=== PATIENT | female | born 1995 ===

== ENCOUNTER 2018-06-23 11:26 | Emergency (ER) | payer OTHER ==
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
[2018-06-23 13:23] LABS: Basophils # (Auto) 0.1 K/mm3 (0.0-0.1); Basophils % (Auto) 0.7 % (0.0-1.8); Eosinophils % (Auto) 0.4 % (0.0-4.3); Hematocrit 35.7 % (30.3-42.9); Hemoglobin 11.7 gm/dl (10.1-14.3); Lymphocytes # (Auto) 1.7 K/mm3 (1.2-5.4); Lymphocytes % (Auto) 18.2 % (13.4-35.0); Mean Corpuscular HGB Conc 33 % (30-34); Mean Corpuscular Volume 86 fl (79-97); Monocytes # (Auto) 0.5 K/mm3 (0.0-0.8); Platelet Count 302 K/mm3 (140-440); Red Blood Count 4.14 M/mm3 (3.65-5.03); Red Cell Distribution Width 15.4 % (13.2-15.2)
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
[2018-06-23 13:36] LABS: Alanine Aminotransferase 9 units/L (7-56); Albumin 4.5 g/dL (3.9-5); BUN/Creatinine Ratio 17; Blood Urea Nitrogen 10 mg/dL (7-17); Hemolysis Index 7
[2018-06-23 14:22] LABS: Bacteria,Urine 1+ /HPF (Negative); Bilirubin,Urine NEG (Negative); Blood,Urine SM (Negative); Color,Urine Yellow (Yellow); Mucus,Urine 2+ /HPF; Urobilinogen,Urine < 2.0 mg/dL (<2.0)
[2018-06-23 14:24] LABS: HCG Qualitative,Urine Negative (Negative)
[2018-06-23] MEDS ORDERED: DILAUDID IV ONE (14:41)
--- NOTE | 2018-06-23 15:10 | XRay Report ---
BILATERAL FOREARMS, 2 VIEWS History: Pain. Findings: Normal bone mineralization. No acute osseous findings or joint pathology. The soft tissues are unremarkable. Impression: Bilateral forearms within normal limits.
--- NOTE | 2018-06-23 15:11 | XRay Report ---
BILATERAL HANDS, 3 VIEWS History: Pain. Findings: Normal bone mineralization. No acute osseous findings or joint pathology is identified. The soft tissues are unremarkable. Impression: Unremarkable bilateral hands.
--- NOTE | 2018-06-23 15:24 | Cat Scan Report ---
CT HEAD WITHOUT CONTRAST: HISTORY: Loss of consciousness. TECHNIQUE: Sequential 2.5mm CT images. COMPARISON: none. FINDINGS: Cerebral Parenchyma: Within normal limits. Cerebellum: Within normal limits. Brainstem: Within normal limits. Ventricles: Normal. Sella: Normal. Extra-axial spaces: Normal. Basal Cisterns: Normal. Intracranial Hemorrhage: None. Midline Shift: None. Calvarium: Normal. Sinuses: Normal. Mastoid Air Cells: Normal. Visualized Orbits: Normal. IMPRESSION: Cranial CT scan within normal limits.
--- NOTE | 2018-06-23 15:25 | Cat Scan Report ---
CT FACIAL BONES WITHOUT CONTRAST: HISTORY: Facial pain. TECHNIQUE: Helical CT images with sagittal and coronal CT reformations. FINDINGS: All paranasal sinuses are clear. No sinus wall fracture, fluid level or opacification. The orbital cavities are symmetric and intact. The mandible is intact. The skull base and upper cervical spine demonstrate no evidence for acute injury. IMPRESSION: Unremarkable CT of the facial bones.
--- NOTE | 2018-06-23 15:26 | Cat Scan Report ---
CT SCAN OF THE CERVICAL SPINE: HISTORY: Midline cervical tenderness to palpation. TECHNIQUE: Contiguous 1.25 mm axial images of the cervical spine were obtained. Sagittal and coronal reformatted images. FINDINGS: There is normal alignment of the cervical spine. The body, pedicles and posterior ligaments appear normal. No evidence of fracture or subluxation is seen. The spinal canal appears normal. The prevertebral soft tissues appear normal. IMPRESSION: Unremarkable CT of the cervical spine. No acute process is noted.
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
[2018-06-23] MEDS ORDERED: ZOFRAN ONE (18:06)
[2018-06-23] MEDS ORDERED: ZOFRAN IV ONE (18:15)
[2018-06-23] MEDS ORDERED: MORPHINE IV ONE (18:57)
[2018-06-23] MEDS ORDERED: MORPHINE ONE (19:01)
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
[2018-06-23 22:57] VITALS: BP 144/80
== END 2018-06-23 22:52 | disposition other institution (70) ==
LOC: ED 11:26
DX: S50.10XA Contusion of unspecified forearm, initial encounter (principal); S20.219A Contusion of unspecified front wall of thorax, initial encounter; S16.1XXA Strain of muscle, fascia and tendon at neck level, initial encounter; S06.0X1A Concussion with loss of consciousness of 30 minutes or less, initial encounter; N83.201 Unspecified ovarian cyst, right side; M79.641 Pain in right hand; M79.632 Pain in left forearm; G44.319 Acute post-traumatic headache, not intractable; R10.84 Generalized abdominal pain; V89.2XXA Person injured in unspecified motor-vehicle accident, traffic, initial encounter; Y93.89 Activity, other specified; Y99.8 Other external cause status; Y92.410 Unspecified street and highway as the place of occurrence of the external cause
CPT/HCPCS: 36415; 70450; 70486; 71260; 72125; 73090; 73130; 74176; 74177; 80053; 81001; 81025; 85025; 96374; 96375; 99291; 99292; J1170; J2270; J2405; Q9967